=== PATIENT | female | born 1940 | race Two or more races ===

== ENCOUNTER → 2024-09-29 | Outpatient (CLI) | payer MEDICAID, SELFPAY ==
--- NOTE | 2024-09-29 15:50 | XR_ITS ---
Examination: Wrist, left 3 views Technique: Wrist AP, oblique, lateral 3 views Date and time of exam: September 29, 2024 1555 hrs. Indications: Patient fell acute wrist fracture August 10, 2024 Findings: Partial healing impacted fracture distal radial metaphysis with adequate alignment Fracture ulnar styloid tip Severe osteopenia Impression: Partial healing impacted fracture distal radial metaphysis with satisfactory alignment
--- NOTE | 2024-09-29 15:50 | XR_ITS ---
Examination: Hand, left 3 views Technique: Hand AP, oblique, lateral 3 views Date and time of exam: September 29, 2024 1554 hrs. Indications: Left wrist fracture August 10, 2024 Findings: Severe osteopenia Subacute impacted fracture distal radial metaphysis without significant displacement Significant osteoarthritis first carpometacarpal joint Impression: Partial healing impacted fracture distal radial metaphysis
== END | disposition home or self-care (01) ==
PROVIDERS: Referring Provider Nurse Practitioner Gerontology; Visit Provider Nurse Practitioner Gerontology
DX: S52.92XA Unspecified fracture of left forearm, initial encounter for closed fracture (principal); W19.XXXA Unspecified fall, initial encounter
CPT/HCPCS: 73110; 73130